=== PATIENT | female | born 1955 | race Caucasian/White ===

== ENCOUNTER → 2017-12-29 | Day surgery (SDC) | payer BC ==
[2017-12-27 09:15] LABS: BASOPHILS % 0.4 % (0.0-1.0); EOSINOPHILS # (AUTO) 0.1 (0.0-0.4); EOSINOPHILS % 1.6 % (0.0-6.0); HEMATOCRIT 40.7 % (34.2-44.1); LYMPHOCYTES # (AUTO) 2.2 (1.0-3.2); MEAN CORPUSCULAR HEMOGLOBIN 29.2 pg (28-32); MEAN CORPUSCULAR HGB CONC 31.9 g/dL (31-35); MEAN CORPUSCULAR VOLUME 91.5 fL (81-99); MONOCYTES # (AUTO) 0.8 (0.2-0.8); MONOCYTES % 9.1 % (4.4-11.3); NEUTROPHILS # (AUTO) 5.1 (2.1-6.9); NEUTROPHILS % 61.5 % (38.7-80.0); PLATELET COUNT 239 x10e3/uL (140-360); RED BLOOD COUNT 4.45 x10e6/uL (3.6-5.1)
--- NOTE | 2017-12-27 09:19 | Diagnostic Imaging Report ---
PROCEDURE: X-RAY CHEST, TWO VIEWS COMPARISON: None. INDICATIONS: PREOPERATIVE CHEST XRAY FOR BACK SURGERY FINDINGS: The lungs are well-inflated. No focal airspace consolidation, pleural effusion, or pneumothorax. Cardiomediastinal contour and pulmonary vasculature are within normal limits. No acute osseous abnormality. Multilevel degenerative disc changes of the thoracic spine. Linear radiopaque material projects over the upper abdomen on the lateral radiograph which may be external to the patient. CONCLUSION: No acute cardiopulmonary abnormality. Dictated by: Lio Paula M.D. on 12/27/2017 at 9:27 Electronically approved by: Lio Paula M.D. on 12/27/2017 at 9:27
[2017-12-27 09:44] LABS: ANION GAP 17.5 mmol/L (8-16); BLOOD UREA NITROGEN 15 mg/dL (7-26); BUN/CREATININE RATIO 18 (6-25); CALCIUM 10.1 mg/dL (8.4-10.2); CARBON DIOXIDE 27 mmol/L (22-29); CHLORIDE 98 mmol/L (98-107); CREATININE, SERUM 0.83 mg/dL (0.57-1.11); EST GLOMERULAR FILTRATION RATE > 60 ML/MIN (60-); GLUCOSE 178 mg/dL (74-118); POTASSIUM 4.5 mmol/L (3.5-5.1); SODIUM 138 mmol/L (136-145)
[~2017-12-29] MED LIST: ACETAMINOPHEN 1000 MG/100 ML IV ONE; ASPIRIN81 MG PO; ATORVASTATIN CA20 MG PO; BUPIVACAINE 0.25%/EPI 30ML SDV INJ ONE; CALCIUM PO; CITALOPRAM HBR20 MG PO; DEXAMETHASONE SOD PHOS INJ 4 MG/ML VIAL ONE; DEXILANT60 MG PO; DICYCLOMINE HCL20 MG PO; FENTANYL CITRATE/PF 100MCG/2 ML INJ ONE; FISH OIL 1,2001 EACH PO; GLIPIZIDE ER10 MG PO; JANUVIA50 MG PO; LEVEMIR100 UNIT/1; LIDOCAINE HCL (LTA) 4 ML SOLN ONE; LIDOCAINE HCL 1% 30ML-PF VIAL ONE; LIDOCAINE HCL 2% LOCAL INJ 5 ML SDV VIAL INJ ONE; LOSARTAN-HCTZ1 EAC1 PO; METFORMIN HCL500 M1 PO; METOPROLOL SUCC25 MG PO; MIDAZOLAM HCL 2 MG/2 ML VIAL ONE; MULTI-VITAMIN1 EACH PO; ONDANSETRON HCL INJ 2 MG/ML VIAL ONE; PANTOPRAZOLE SO40 MG PO; PROPOFOL IV EMULSION 10 MG/ML 20 ML VIAL ONE; SEVOFLURANE INHAL SOLN 250 ML PEN BTL ONE
--- OUTSIDE RECORDS SUMMARY | 2017-12-29 07:02 | XMS REPORT ---
Author [facility] Address Unknown Phone Unavailable Care Team Providers Care Distance Education Teacher Name Role Phone RAFAELA SIMMONS Unavailable Unavailable Payers Payer Name Policy Type Policy Number Effective Date Expiration Date Problems This patient has no known problems. Allergies, Adverse Reactions, Alerts Allergy Name Allergy Type Status Severity Reaction(s) Onset Date Inactive Date Treating Clinician Comments No Known Allergies DA Active U 2016-05-29 00:00:00 Medications This patient has no known medications. Results Test Description Test Time Test Comments Text Results Atomic Results Result Comments CHEST 2 VIEWS 2017-12-27 09:27:00 [place] [address] Patient Name: ALBERT HERNANDEZ MR #: [id number] : 1955 Age/Sex: 62/F Req #: [id number] Adm Physician: Ordered by: RAFAELA SIMMONS MD Report #: [id number] Location: OR Room/Bed: Procedure: [id number] DX/CHEST 2 VIEWS Exam Date: Exam Time: REPORT STATUS: Signed PROCEDURE: X-RAY CHEST, TWO VIEWS COMPARISON: None. INDICATIONS: PREOPERATIVE CHEST XRAY FOR BACK SURGERY FINDINGS: The lungs are well-inflated. No focal airspace consolidation, pleural effusion, or pneumothorax. Cardiomediastinal contour and pulmonary vasculature are within normal limits. No acute osseous abnormality. Multilevel degenerative disc changes of the thoracic spine. Linear radiopaque material projects over the upper abdomen on the lateral radiograph which may be external to the patient. CONCLUSION: No acute cardiopulmonary abnormality. Dictated by: Ninfa Santos M.D. on 12/27/2017 at 9:27 Electronically approved by: Ninfa Santos M.D. on 12/27/2017 at 9:27 Dictated By: NINFA SANTOS MD 6 Transcribed By: TIN on 12/27/17926 COPY TO: RAFAELA SIMMONS MD
--- NOTE | 2017-12-29 10:04 | Operative Report ---
DATE OF PROCEDURE: December 29, 2017 PREOPERATIVE DIAGNOSIS: Status post incision and drainage of an epidermal inclusion cyst of the back. POSTOPERATIVE DIAGNOSIS: Status post incision and drainage of an epidermal inclusion cyst of the back. PROCEDURE PERFORMED: Excision of a previously drained epidermal inclusion cyst of the back. ANESTHESIA: General. ESTIMATED BLOOD LOSS: Minimal. DRAINS: None. COMPLICATIONS: None. INDICATIONS AND FINDINGS: The patient is a morbidly obese, 62-year-old female who had undergone excision of an epidermal inclusion cyst of the right upper back near the shoulder region. She was seen and admitted for excision to prevent recurrence. INTRAOPERATIVE FINDINGS: Healed scar of left upper back medial to the shoulder. DESCRIPTION OF PROCEDURE: With the patient lying on the operative table in the supine position, after administration of general anesthesia, she was prepped and draped for excision of epidermal inclusion cyst of the left upper back. An elliptical incision was made around the scar that was included in the incision, and the dissection was carried down through the skin and subcutaneous tissue down to the deep subcutaneous tissue that was free of any scarring from previous I and D. The entire specimen was removed en bloc. Bleeding points were cauterized. The wound was irrigated and closed in 2 layers using a combination of 2-0 chromic for the deep layers and 2-0 Vicryl for the subcuticular plane. The skin was closed using combination of 2-0 and 3-0 silk. Sterile dressing was applied. The patient tolerated the procedure well and was taken to recovery room in stable condition. Job#: [id number]
[2017-12-29 10:45] VITALS: BP 124/64
== END | disposition home or self-care (01) ==
LOC: OR 07:00
PROVIDERS: ATTEND Surgery
DX: L72.0 Epidermal cyst (principal); L90.5 Scar conditions and fibrosis of skin; E66.01 Morbid (severe) obesity due to excess calories; M06.9 Rheumatoid arthritis, unspecified; M19.90 Unspecified osteoarthritis, unspecified site; G47.33 Obstructive sleep apnea (adult) (pediatric); I10 Essential (primary) hypertension; E78.5 Hyperlipidemia, unspecified; K57.90 Diverticulosis of intestine, part unspecified, without perforation or abscess without bleeding; E11.9 Type 2 diabetes mellitus without complications; Z01.810 Encounter for preprocedural cardiovascular examination; Z01.812 Encounter for preprocedural laboratory examination; Z01.818 Encounter for other preprocedural examination; Z79.82 Long term (current) use of aspirin; Z79.4 Long term (current) use of insulin; Z87.891 Personal history of nicotine dependence
CPT/HCPCS: 11400; 12031; 36415; 71046; 80048; 85025; 88305; 93005; J1100; J2001; J2250; J2405; 88304

== ENCOUNTER → 2018-05-24 | Day surgery (SDC) | payer BC ==
[~2018-05-24] MED LIST changes: -ACETAMINOPHEN 1000 MG/100 ML IV ONE; -BUPIVACAINE 0.25%/EPI 30ML SDV INJ ONE; -DEXAMETHASONE SOD PHOS INJ 4 MG/ML VIAL ONE; -FENTANYL CITRATE/PF 100MCG/2 ML INJ ONE; +GLUCAGON FOR INJ 1 MG VIAL ONE; +HYOSCYAMINE SULFATE 0.5 MG/ML INJ ONE; -LIDOCAINE HCL (LTA) 4 ML SOLN ONE; -LIDOCAINE HCL 1% 30ML-PF VIAL ONE; -LIDOCAINE HCL 2% LOCAL INJ 5 ML SDV VIAL INJ ONE; +LOSARTAN POTAS100 MG PO; -MIDAZOLAM HCL 2 MG/2 ML VIAL ONE; -ONDANSETRON HCL INJ 2 MG/ML VIAL ONE; -PROPOFOL IV EMULSION 10 MG/ML 20 ML VIAL ONE; +PROPOFOL IV EMULSION 10 MG/ML 50 ML VIAL ONE; -SEVOFLURANE INHAL SOLN 250 ML PEN BTL ONE; +VICTOZA 3-0.6 MG/0.1 INJ
[2018-05-24 12:43] VITALS: BP 111/75
--- NOTE | 2018-05-24 20:32 | Operative Report ---
DATE OF PROCEDURE: 05/24/2018 SURGEON: Ruel Gorman MD PROCEDURES: Esophagogastroduodenoscopy with biopsies and colonoscopy with polypectomy. INDICATION FOR EGD: Acid reflux. INDICATIONS FOR COLONOSCOPY: Surveillance colonoscopy, personal history of colon polyps. MEDICATION: The patient was done under MAC, please see anesthesiologist's note. PROCEDURE IN DETAIL: With the patient in left lateral decubitus position, a flexible fiberoptic Olympus gastroscope was introduced into the esophagus under direct visualization without any difficulty. There was some patchy erythema noted in distal esophagus. The scope was then advanced with ease into the stomach. Mucosa overlying the antrum and the body revealed some patchy erythema, [id number] edema. Biopsies were obtained and sent to stain for H pylori. A single hyperplastic-appearing polyp was noted in the mid body along the greater curvature that was partially excised with the cold biopsy forceps. The pylorus was of normal contour and shape, was intubated with ease and the scope was advanced all the way to the second portion of the duodenum. There was a somewhat scalloped fold noted in the second portion and that was biopsied. The rest of the second portion of the duodenum and the duodenal bulb appeared to be within normal limits. The scope was then withdrawn back into the stomach and retroflexed. Mucosa overlying the fundus appeared to be within normal limits. An intact Sally fundoplication was also noted. The scope was then straightened out, it was subsequently withdrawn. The patient tolerated the procedure well. IMPRESSION: 1. Distal esophagitis, mild. 2. Intact Sally fundoplication. 3. Gastritis, biopsied. Biopsies sent to stain for Helicobacter pylori. 4. Gastric polyp, body, partially excised with the cold biopsy forceps. PLAN: Follow up histology. Increase Protonix to 40 mg one p.o. a.c. b.i.d. The patient was then turned around after adequate lubrication of the anal canal. Flexible fiberoptic Olympus colonoscope was inserted into the rectum with ease and advanced all the way to the cecum. The scope was then withdrawn slowly. Mucosa overlying the cecum appeared to be within normal limits. The ascending colon appeared to be within normal limits. One polyp was snared. One polyp was hot biopsied from the transverse colon. Diverticular disease was noted to involve primarily the descending and the sigmoid colon. One polyp was hot biopsied from the descending colon, two polyps were hot biopsied from the sigmoid, and one polyp was hot biopsied from the rectum. The scope was then retroflexed into the distal rectum. Small internal hemorrhoids were noted, none of which was actively bleeding. The scope was then straightened out, it was subsequently withdrawn. The patient tolerated the procedure well. IMPRESSION: 1. Transverse colon polyps x2, one snared, one hot biopsied. 2. Descending colon polyp, hot biopsied. 3. Diverticulosis. 4. Sigmoid colon polyps x2, hot biopsied. 5. Rectal polyps x1, hot biopsied. 6. Internal hemorrhoids, none actively bleeding. PLAN: Follow up histology. Initiate high-fiber, low-fat diet. Initiate high-fiber supplement. A total of six polyps were removed. The patient might benefit from a followup colonoscopy in 3 [address]. [address] G[address] MD [facility] [place]OHN[place] /[id number] cc: Marcel Pablo
== END | disposition home or self-care (01) ==
LOC: OR 08:11
PROVIDERS: ATTEND Internal Medicine Gastroenterology
DX: K21.0 Gastro-esophageal reflux disease with esophagitis (principal); D12.3 Benign neoplasm of transverse colon; K31.7 Polyp of stomach and duodenum; K62.1 Rectal polyp; K29.70 Gastritis, unspecified, without bleeding; R19.5 Other fecal abnormalities; K57.30 Diverticulosis of large intestine without perforation or abscess without bleeding; Z98.890 Other specified postprocedural states; Z98.84 Bariatric surgery status; K64.8 Other hemorrhoids; E11.9 Type 2 diabetes mellitus without complications; I10 Essential (primary) hypertension; E78.00 Pure hypercholesterolemia, unspecified; G47.33 Obstructive sleep apnea (adult) (pediatric); E66.01 Morbid (severe) obesity due to excess calories; F32.9 Major depressive disorder, single episode, unspecified; F41.9 Anxiety disorder, unspecified; Z01.810 Encounter for preprocedural cardiovascular examination; Z79.84 Long term (current) use of oral hypoglycemic drugs; Z79.82 Long term (current) use of aspirin; Z68.43 Body mass index [BMI] 50.0-59.9, adult
CPT/HCPCS: 36415; 43239; 45384; 45385; 82948; 93005; J1610; J1980; J2704

== ENCOUNTER 2020-06-01 09:26 | Inpatient (IN) | payer MEDICARE ==
[2020-04-23 10:43] LABS: BASOPHILS % 0.4 % (0.0-1.0); EOSINOPHILS # (AUTO) 0.1 (0.0-0.4); EOSINOPHILS % 0.9 % (0.0-6.0); HEMATOCRIT 40.6 % (34.2-44.1); HEMOGLOBIN 12.7 g/dL (12.0-16.0); LYMPHOCYTES # (AUTO) 1.9 (1.0-3.2); LYMPHOCYTES % 23.5 % (18.0-39.1); MEAN CORPUSCULAR HEMOGLOBIN 27.9 pg (28-32); MEAN CORPUSCULAR HGB CONC 31.3 g/dL (31-35); MEAN CORPUSCULAR VOLUME 89.2 fL (81-99); MONOCYTES # (AUTO) 0.7 (0.2-0.8); MONOCYTES % 8.5 % (4.4-11.3); NEUTROPHILS # (AUTO) 5.3 (2.1-6.9); NEUTROPHILS % 66.5 % (38.7-80.0); PLATELET COUNT 266 x10e3/uL (140-360); RED BLOOD COUNT 4.55 x10e6/uL (3.6-5.1); RED CELL DISTRIBUTION WIDTH 14.3 % (11.7-14.4)
[2020-04-23 10:58] LABS: ANION GAP 17.3 mmol/L (8-16); CALCIUM 9.7 mg/dL (8.4-10.2); POTASSIUM 4.3 mmol/L (3.5-5.1)
[2020-05-28 12:05] LABS: BASOPHILS % 0.4 % (0.0-1.0); EOSINOPHILS # (AUTO) 0.2 (0.0-0.4); EOSINOPHILS % 1.5 % (0.0-6.0); HEMATOCRIT 41.8 % (34.2-44.1); HEMOGLOBIN 13.3 g/dL (12.0-16.0); LYMPHOCYTES # (AUTO) 2.7 (1.0-3.2); LYMPHOCYTES % 25.1 % (18.0-39.1); MEAN CORPUSCULAR HEMOGLOBIN 28.3 pg (28-32); MEAN CORPUSCULAR HGB CONC 31.8 g/dL (31-35); MEAN CORPUSCULAR VOLUME 88.9 fL (81-99); MONOCYTES # (AUTO) 0.9 (0.2-0.8); MONOCYTES % 8.5 % (4.4-11.3); NEUTROPHILS # (AUTO) 6.8 (2.1-6.9); PLATELET COUNT 282 x10e3/uL (140-360); RED CELL DISTRIBUTION WIDTH 14.5 % (11.7-14.4)
[2020-05-28 12:20] LABS: ANION GAP 18.8 mmol/L (8-16); CALCIUM 9.8 mg/dL (8.4-10.2); CREATININE, SERUM 1.31 mg/dL (0.57-1.11); POTASSIUM 4.8 mmol/L (3.5-5.1)
[~2020-06-01] VITALS: Ht 157.5 cm; Wt 152.0 kg
[~2020-06-01 09:26] MED LIST changes: +BENICAR HCT 401 EACH PO; +CALCIUM ACETAT667 M1 PO; +CLARITIN10 MG PO; +FIASP 100100 UNIT/1 SC; -GLUCAGON FOR INJ 1 MG VIAL ONE; +HYDROCHLOROTHIA25 MG PO; -HYOSCYAMINE SULFATE 0.5 MG/ML INJ ONE; +OLMESARTAN-HCT1 EAC2 PO; +OZEMPIC1 MG/0.75 SC; -PROPOFOL IV EMULSION 10 MG/ML 50 ML VIAL ONE; +TRESIBA100 UNIT/1 SC; +VITAMIN B COMP1 EACH PO
[2020-06-01] MEDS ORDERED: LIDOCAINE HCL (LTA) 4 ML SOLN ONE (09:29)
[2020-06-01] MEDS ORDERED: SCOPOLAMINE 1.5 MG PATCH ONE (09:29)
[2020-06-01] MEDS ORDERED: ACETAMINOPHEN 1000 MG/100 ML 100 ML IV ONE (09:29)
[2020-06-01] MEDS ORDERED: SUGAMMADEX SODIUM 200 MG/2 ML VIAL IV ONE (09:30)
[2020-06-01] MEDS ORDERED: CEFAZOLIN SOD 1 GM/NS 50ML 100 ML IV ONE (10:08)
[2020-06-01] MEDS ORDERED: BUPIVACAINE 0.25% 30ML SDV ONE (10:37)
[2020-06-01] MEDS ORDERED: INSULIN REGULAR, HUMAN 100 UNIT/1 ML 3ML VIAL ONE (11:07)
[2020-06-01] MEDS ORDERED: FIBRIN FROZEN 2 ML SPRAY.GEL TOP ONE (12:27)
[2020-06-01] MEDS ORDERED: LIDOCAINE HCL 2% LOCAL INJ 5 ML SDV VIAL INJ ONE (13:08)
[2020-06-01] MEDS ORDERED: LIDOCAINE HCL 2% JELLY 5 ML TUBE ONE (13:08)
[2020-06-01] MEDS ORDERED: PROPOFOL IV EMULSION 10 MG/ML 20 ML VIAL ONE (13:08)
[2020-06-01] MEDS ORDERED: ROCURONIUM BROMIDE 10 MG/ML 5ML VIAL IV ONE (13:08)
[2020-06-01] MEDS ORDERED: SEVOFLURANE INHAL SOLN 250 ML PEN BTL ONE (13:08)
[2020-06-01] MEDS ORDERED: ONDANSETRON HCL INJ 2MG/ML 2ML 2 MG/ML VIAL ONE ×2 (13:08→13:54)
[2020-06-01] MEDS ORDERED: METOCLOPRAMIDE HCL 10 MG/2ML VIAL ONE (13:54)
[2020-06-01] MEDS ORDERED: FENTANYL CITRATE/PF 100MCG/2 ML INJ ONE (13:55)
[2020-06-01] MEDS: SODIUM CHLORIDE 0.9% 1000ML 1,000 ML IV SCH ×2 (14:00→22:36)
[2020-06-01] MEDS ORDERED: ONDANSETRON HCL INJ 2MG/ML 2ML 2 MG/ML VIAL IV PRN (14:00)
[2020-06-01] MEDS ORDERED: HYDROCODONE/APAP 7.5MG-325MG 1 EA TAB PO PRN (14:00)
[2020-06-01 17:56] VITALS: BP 96/53
[2020-06-01 18:03] VITALS: BP 96/53
[2020-06-01 20:00] VITALS: BP 102/52
[2020-06-01] MEDS: MORPHINE SULFATE INJ 2 MG/ML SYR IV PRN (22:00)
[2020-06-01] MEDS: ENOXAPARIN SOD INJ 40 MG/0.4 ML SYR SC SCH (22:36)
[2020-06-02] VITALS: BP_SYST 112; BP_SYST 93; BP_DIAS 38; BP_DIAS 51
[2020-06-02 00:54] VITALS: BP 112/51
[2020-06-02] MEDS: MORPHINE SULFATE INJ 2 MG/ML SYR IV PRN ×2 (02:04→07:26)
[2020-06-02 04:00] VITALS: BP 107/67
[2020-06-02 06:34] LABS: BASOPHILS % 0.2 % (0.0-1.0); EOSINOPHILS % 0.3 % (0.0-6.0); HEMATOCRIT 35.5 % (34.2-44.1); HEMOGLOBIN 11.2 g/dL (12.0-16.0); LYMPHOCYTES # (AUTO) 1.6 (1.0-3.2); LYMPHOCYTES % 15.6 % (18.0-39.1); MEAN CORPUSCULAR HEMOGLOBIN 29.6 pg (28-32); MEAN CORPUSCULAR HGB CONC 31.5 g/dL (31-35); MEAN CORPUSCULAR VOLUME 93.7 fL (81-99); MONOCYTES # (AUTO) 1.2 (0.2-0.8); MONOCYTES % 11.9 % (4.4-11.3); NEUTROPHILS # (AUTO) 7.3 (2.1-6.9); NEUTROPHILS % 71.6 % (38.7-80.0); PLATELET COUNT 198 x10e3/uL (140-360); RED BLOOD COUNT 3.79 x10e6/uL (3.6-5.1); RED CELL DISTRIBUTION WIDTH 14.8 % (11.7-14.4)
[2020-06-02 07:09] LABS: ALANINE AMINOTRANSFERASE 42 IU/L (0-55); ALBUMIN 3.4 g/dL (3.5-5.0); ALBUMIN/GLOBULIN RATIO 1.2 (0.8-2.0); ALKALINE PHOSPHATASE 64 IU/L (40-150); ANION GAP 15.9 mmol/L (8-16); BLOOD UREA NITROGEN 29 mg/dL (7-26); BUN/CREATININE RATIO 31 (6-25); CALCIUM 8.7 mg/dL (8.4-10.2); CARBON DIOXIDE 26 mmol/L (22-29); CHLORIDE 105 mmol/L (98-107); CREATININE, SERUM 0.93 mg/dL (0.57-1.11); EST GLOMERULAR FILTRATION RATE > 60 ML/MIN (60-); GLUCOSE 153 mg/dL (74-118); MAGNESIUM 1.4 MG/DL (1.3-2.1); PHOSPHORUS 3.4 MG/DL (2.3-4.7); POTASSIUM 3.9 mmol/L (3.5-5.1); SODIUM 143 mmol/L (136-145)
[2020-06-02] MEDS: SODIUM CHLORIDE 0.9% 1000ML 1,000 ML IV SCH (07:26)
[2020-06-02] MEDS ORDERED: TYLENOL # 31 EA PO (07:59)
[2020-06-02 08:28] VITALS: BP 98/65
[2020-06-02 08:41] VITALS: BP 98/65
[2020-06-02] MEDS: ENOXAPARIN SOD INJ 40 MG/0.4 ML SYR SC SCH (09:01)
[2020-06-02 11:45] VITALS: BP 120/65
== END 2020-06-02 14:11 | disposition home or self-care (01) | DRG 620 ==
LOC: OR 09:26 → PACU V 13:46 → IMCU 17:41
PROVIDERS: ADMIT Internal Medicine; ATTEND Internal Medicine
PROC: 0D164ZA Bypass Stomach to Jejunum, Percutaneous Endoscopic Approach (ICD-10-PCS; 2020-06-01)
PROC: 0DP64CZ Removal of Extraluminal Device from Stomach, Percutaneous Endoscopic Approach (ICD-10-PCS; principal; 2020-06-01 11:30)
DX: E66.01 Morbid (severe) obesity due to excess calories (principal); N17.9 Acute kidney failure, unspecified; Z68.44 Body mass index [BMI] 60.0-69.9, adult; R13.10 Dysphagia, unspecified; G47.33 Obstructive sleep apnea (adult) (pediatric); Z79.84 Long term (current) use of oral hypoglycemic drugs; Z98.84 Bariatric surgery status; E11.22 Type 2 diabetes mellitus with diabetic chronic kidney disease; I13.10 Hypertensive heart and chronic kidney disease without heart failure, with stage 1 through stage 4 chronic kidney disease, or unspecified chronic kidney disease; N18.30 Chronic kidney disease, stage 3 unspecified; N99.4 Postprocedural pelvic peritoneal adhesions; Z20.822 Contact with and (suspected) exposure to COVID-19
CPT/HCPCS: 36415; 80048; 80053; 82948; 83735; 84100; 85025; 93005; 96361; J0690; J1650; J1817; J2001; J2270; J2405; J2765; J3010; J7030; U0002

== ENCOUNTER → 2020-09-30 | Outpatient (CLI) | payer OTHER ==
[~2020-09-30] MED LIST changes: +BENICAR HCT 401 EAC1 PO; +CIPRO500 MG PO; +TYLENOL # 31 EA PO; +TYLENOL ARTHRITIS PO
== END ==
LOC: US 09:30
PROVIDERS: ATTEND Internal Medicine Gastroenterology
DX: R10.10 Upper abdominal pain, unspecified (principal)
CPT/HCPCS: 76700

== ENCOUNTER → 2020-10-07 | Day surgery (SDC) | payer BC, MEDICARE ==
[2020-09-30 10:00] LABS: BASOPHILS % 0.2 % (0.0-1.0); EOSINOPHILS # (AUTO) 0.1 (0.0-0.4); EOSINOPHILS % 1.2 % (0.0-6.0); HEMATOCRIT 37.2 % (34.2-44.1); HEMOGLOBIN 11.5 g/dL (12.0-16.0); LYMPHOCYTES # (AUTO) 2.3 (1.0-3.2); LYMPHOCYTES % 22.9 % (18.0-39.1); MEAN CORPUSCULAR HEMOGLOBIN 27.3 pg (28-32); MEAN CORPUSCULAR HGB CONC 30.9 g/dL (31-35); MEAN CORPUSCULAR VOLUME 88.4 fL (81-99); MONOCYTES # (AUTO) 0.8 (0.2-0.8); MONOCYTES % 8.3 % (4.4-11.3); NEUTROPHILS # (AUTO) 6.7 (2.1-6.9); NEUTROPHILS % 67.1 % (38.7-80.0); PLATELET COUNT 262 x10e3/uL (140-360); RED BLOOD COUNT 4.21 x10e6/uL (3.6-5.1); RED CELL DISTRIBUTION WIDTH 14.4 % (11.7-14.4)
[~2020-10-07] MED LIST changes: +LIDOCAINE HCL 2% LOCAL INJ 5 ML SDV VIAL INJ ONE; +MIDAZOLAM HCL 2 MG/2 ML VIAL ONE; +PROPOFOL IV EMULSION 10 MG/ML 20 ML VIAL ONE
[2020-10-07 09:15] VITALS: BP 109/53
== END | disposition home or self-care (01) ==
LOC: OR 06:07
PROVIDERS: ATTEND Internal Medicine Gastroenterology
DX: K20.90 Esophagitis, unspecified without bleeding (principal); K29.70 Gastritis, unspecified, without bleeding; K44.9 Diaphragmatic hernia without obstruction or gangrene; R13.19 Other dysphagia; K28.9 Gastrojejunal ulcer, unspecified as acute or chronic, without hemorrhage or perforation; I10 Essential (primary) hypertension; E66.01 Morbid (severe) obesity due to excess calories; Z68.42 Body mass index [BMI] 45.0-49.9, adult; Z86.010 Personal history of colon polyps; Z98.84 Bariatric surgery status; E11.9 Type 2 diabetes mellitus without complications; E78.00 Pure hypercholesterolemia, unspecified; Z79.82 Long term (current) use of aspirin; Z79.4 Long term (current) use of insulin; Z87.440 Personal history of urinary (tract) infections; G47.33 Obstructive sleep apnea (adult) (pediatric)
CPT/HCPCS: 36415 ×2; 43239; 43450; 82948; 85025; 88305; 88312; 93005; C9113; J2001; J2250; J2704

== ENCOUNTER → 2021-06-08 | Day surgery (SDC) | payer MEDICARE ==
[~2021-06-08] MED LIST changes: +FENTANYL CITRATE/PF 100MCG/2 ML INJ ONE; +HYOSCYAMINE SULFATE 0.5 MG/ML INJ ONE; -LIDOCAINE HCL 2% LOCAL INJ 5 ML SDV VIAL INJ ONE; -MIDAZOLAM HCL 2 MG/2 ML VIAL ONE; +MIDAZOLAM HCL 5 MG/ML VIAL ONE; +OZEMPIC0.25 MG/0. SC; +PANTOPRAZOLE SO20 MG
[2021-06-08 13:49] VITALS: BP 132/66
[2021-06-08 15:13] LABS: WBC,FECAL (FECAL LACTOFERRIN) POSITIVE (NEGATIVE)
[2021-06-09 11:40] LABS: C DIFFICILE TOXIN A&B AMP PROB NEGATIVE (NEGATIVE)
== END | disposition home or self-care (01) ==
LOC: OR 11:05
PROVIDERS: ATTEND Internal Medicine Gastroenterology
DX: K52.9 Noninfective gastroenteritis and colitis, unspecified (principal); D12.2 Benign neoplasm of ascending colon; D12.4 Benign neoplasm of descending colon; K25.9 Gastric ulcer, unspecified as acute or chronic, without hemorrhage or perforation; K51.20 Ulcerative (chronic) proctitis without complications; K44.9 Diaphragmatic hernia without obstruction or gangrene; Z98.84 Bariatric surgery status; K57.30 Diverticulosis of large intestine without perforation or abscess without bleeding; K64.8 Other hemorrhoids; G47.33 Obstructive sleep apnea (adult) (pediatric); E11.9 Type 2 diabetes mellitus without complications; I10 Essential (primary) hypertension; I45.10 Unspecified right bundle-branch block; Z01.810 Encounter for preprocedural cardiovascular examination; Z01.812 Encounter for preprocedural laboratory examination; Z20.822 Contact with and (suspected) exposure to COVID-19; Z79.4 Long term (current) use of insulin; Z79.899 Other long term (current) drug therapy
CPT/HCPCS: 36415; 43235; 45380; 45385; 82948; 83630; 83993; 85651; 86141; 86256; 86671; 87045; 87177; 87328; 87493; 88305; 88342; 93005; C9113; J1980; J2250; J2704; J3010; U0002; 43239; 45378